=== PATIENT | female | born 1995 | race Caucasian/White ===

== ENCOUNTER 2024-08-10 06:59 | Outpatient (CLI) | payer BC | END 2024-08-10 07:00 | disposition home or self-care (01) | LOC: BICULT 06:59 | PROVIDERS: ATTEND Physician Assistant Medical | DX: K90.0 Celiac disease (principal); R31.29 Other microscopic hematuria; R10.31 Right lower quadrant pain; R16.1 Splenomegaly, not elsewhere classified; K80.20 Calculus of gallbladder without cholecystitis without obstruction; K76.0 Fatty (change of) liver, not elsewhere classified; Z80.0 Family history of malignant neoplasm of digestive organs | CPT/HCPCS: 76700 ==